=== PATIENT | male | born 1955 | race Caucasian/White ===

== ENCOUNTER → 2022-11-02 13:43 | Outpatient (CLI) | payer MEDICARE, SELFPAY ==
--- NOTE | ~2022-11-02 | XR_ITS ---
AP and lateral views of the left hip Clinical history: Pain Findings: No acute fracture or dislocation is seen. Osseous alignment is anatomic. The left hip joint is preserved. Soft tissues are unremarkable. Impression: No significant abnormality is seen. Reviewed, dictated and finalized at location . Impression: No significant abnormality is seen.
== END ==
PROVIDERS: PCP Family Medicine; Visit Provider Family Medicine
DX: M25.552 Pain in left hip (principal)
CPT/HCPCS: 73502

== ENCOUNTER 2023-02-08 00:34 | Day surgery (SDC) | payer MEDICARE, SELFPAY ==
[2023-01-27 13:17] VITALS: BMI 32.5
[2023-02-08 07:39] VITALS: BP 147/81; PULSE 65; RESP 20; TEMP 36.4; O2SAT 98
[2023-02-08] MEDS: LACTATED RINGERS 1,000 ML 150 ML IV CONT (07:42)
--- NOTE | 2023-02-08 08:16 | PM.HPGS ---
History of Present Illness History of Present Illness Consent: Risks, benefits, and alternatives have been discussed and questions answered. Patient agrees to proceed with procedure. Chief complaint: hx colon polyps Narrative: Richard Juan is a 67 year old male Presents for screening colonoscopy. Patient has current weight appetite and bowel movements are normal. Patient denies abdominal pain. He has had no bleeding. Patient has a history of adenomatous colon polyp in 2017. Patient presents today for surveillance colonoscopy. Patient has current weight appetite bowel movements are normal. He denies abdominal pain. He has had no bleeding. Family history noncontributory. Review of Systems Review of Systems: Review of systems noncontributory. [facility] Past Medical History Medical History (Updated 10/30/22 @ 10:58 by Víctor Philip MD) Essential (primary) hypertension Hyperlipidemia, unspecified Personal history of colonic polyps Prediabetes Social History Social History (Updated 10/30/22 @ 10:07 by Tequila Terrell MA) Smoking packs per day: 2 Smoking cigarettes per day: 40.0 Years smoked: 15 Smoking pack-years: 30.00 Smoking status: Former smoker Smokeless tobacco user: chewing tobacco Alcohol intake: never Substance use: never Substance use type: does not use Lack of Transportation: No Lack of Food: Never True Current Housing: I Have Housing Concerned About Future Housing: No Difficulty Paying Gas/Electric Bills: No Difficulty Paying for Meds: No Currently Unemployed: No Education: Associate Degree Difficulty w/ Childcare or Family Care: No Living arrangements: with family Occupation/Education: retired Gender identity (if verbalized by the patient): Male Sexual Orientation (if Verbalized by the Patient): Straight or Heterosexual Spiritual care concerns: No Meds Home Medications and Allergies Home Medications Medication Instructions Recorded Confirmed Type amlodipine 10 mg tablet 10 mg PO DAILY 10/30/22 02/08/23 History garlic 500 mg capsule 500 mg PO DAILY 10/30/22 02/08/23 History lisinopril 20 1 tablet PO DAILY 10/30/22 02/08/23 History mg-hydrochlorothiazide 25 mg tablet [id number] 300 mcg-K 60 1 tablet PO DAILY 10/30/22 02/08/23 History mcg-lycop 600 mcg-lutein 300 mcg tablet (Men 50 Plus Multivitamin) omega 6-ipo-raw-fish oil 100 3 cap PO DAILY 10/30/22 02/08/23 History mg-160 mg-1,000 mg capsule (Fish Oil) Allergies Allergy/AdvReac Type Severity Reaction Status Date / Time No Known Allergies Allergy Verified 02/08/23 07:38 Vital Signs Vital Signs - 24 hr 02/08/23 07:39 Temperature 97.5 F L Pulse Rate 65 Respiratory Rate 20 Blood Pressure 147/81 H Pulse Oximetry 98 Oxygen Delivery Room Air Exam Narrative: Physical exam reveals patient to be alert. Vital signs stable. HEENT exam is unremarkable. Patient is anicteric. Lungs are clear to auscultation and percussion. Heart is without murmur or extra sounds. Abdomen bowel sounds are present soft nontender with no organomegaly. Digital external rectal exam is normal. Assessment and Plan Assessment and plan (1) Personal history of colonic polyps: Code(s): Z86.010 - Personal history of colonic polyps Status: Acute Assessment and Plan: Patient has a history of colon polyps in the past. Plan for surveillance colonoscopy at this time. Consider follow-up at 5 year intervals if polyps are identified.
--- NOTE | 2023-02-08 08:42 | WPDANESEPPF ---
Anes - Initial Pre Proc Eval Procedure: Operation Date: 02/08/23 09:00 Proposed Procedures p Colonoscopy - Leonardo Manzano MD Date/Time: 02/08/23 08:42 Surgeon: Leonardo Manzano MD Pre Op Diagnosis: hx colon polyps Patient Data Age: 67 Gender: M Height: 1.91 m Weight: 126.4 kg Last Vital Signs Temp 97.5 F L 02/08/23 07:39 Pulse 65 02/08/23 07:39 Resp 20 02/08/23 07:39 BP 147/81 H 02/08/23 07:39 Pulse Ox 98 02/08/23 07:39 O2 Del Method Room Air 02/08/23 07:39 Allergies Allergy/AdvReac Type Severity Reaction Status Date / Time No Known Allergies Allergy Verified 02/08/23 07:38 Home Medications Medication Instructions Recorded Confirmed Type amlodipine 10 mg tablet 10 mg PO DAILY 10/30/22 02/08/23 History garlic 500 mg capsule 500 mg PO DAILY 10/30/22 02/08/23 History lisinopril 20 1 tablet PO DAILY 10/30/22 02/08/23 History mg-hydrochlorothiazide 25 mg tablet [id number]-to-plrfx 300 mcg-K 60 1 tablet PO DAILY 10/30/22 02/08/23 History mcg-lycop 600 mcg-lutein 300 mcg tablet (Men 50 Plus Multivitamin) omega 8-qrc-ght-fish oil 100 3 cap PO DAILY 10/30/22 02/08/23 History mg-160 mg-1,000 mg capsule (Fish Oil) Patient hx anesthesia problems: none Family hx anesthesia problems: none Results Review: All pre-operative results and documents have been reviewed as part of the pre-operative evaluation. [facility] Past Medical History Medical History (Updated 10/30/22 @ 10:58 by Víctor Philip MD) Essential (primary) hypertension Hyperlipidemia, unspecified Personal history of colonic polyps Prediabetes Social History Social History (Updated 10/30/22 @ 10:07 by Tequila Terrell MA) Smoking packs per day: 2 Smoking cigarettes per day: 40.0 Years smoked: 15 Smoking pack-years: 30.00 Smoking status: Former smoker Smokeless tobacco user: chewing tobacco Alcohol intake: never Substance use: never Substance use type: does not use Lack of Transportation: No Lack of Food: Never True Current Housing: I Have Housing Concerned About Future Housing: No Difficulty Paying Gas/Electric Bills: No Difficulty Paying for Meds: No Currently Unemployed: No Education: Associate Degree Difficulty w/ Childcare or Family Care: No Living arrangements: with family Occupation/Education: retired Gender identity (if verbalized by the patient): Male Sexual Orientation (if Verbalized by the Patient): Straight or Heterosexual Spiritual care concerns: No Anes - Eval Final PreProcedure Day of Procedure 02/08/23 08:42 Patient weight: obese Heart: regular rate and rhythm Lungs: clear to auscultation Airway: Mallampati scale class II Neurological: alert and oriented Last oral intake: >/= 8 hours ASA classification: III Emergent: no Anesthetic plan: proceed Anesthesia type and monitoring: general GIVS and standard monitoring Results Review: All pre-operative results and documents have been reviewed as part of the pre-operative evaluation. Informed Consent: The patient's anesthetic plan and its attendant risks and benefits were discussed with the patient/family/POA. Questions were solicited and answers provided to the satisfaction of the patient/family/POA.
[2023-02-08 09:19] VITALS: BP 122/76; PULSE 55; RESP 18; O2SAT 96
[2023-02-08 09:29] VITALS: BP 120/78; PULSE 56; RESP 19; O2SAT 96
[2023-02-08 09:39] VITALS: BP 134/81; PULSE 54; RESP 17; O2SAT 97
== END 2023-02-08 09:45 | disposition home or self-care (01) ==
PROVIDERS: PCP Family Medicine; Visit Provider Internal Medicine Gastroenterology
PROC: 0DJD8ZZ Inspection of Lower Intestinal Tract, Via Natural or Artificial Opening Endoscopic (ICD-10-PCS; CPT 45378; principal; 2023-02-08 09:00)
DX: Z12.11 Encounter for screening for malignant neoplasm of colon (principal); D12.3 Benign neoplasm of transverse colon; K63.5 Polyp of colon; K57.30 Diverticulosis of large intestine without perforation or abscess without bleeding; K64.8 Other hemorrhoids; I10 Essential (primary) hypertension; E78.5 Hyperlipidemia, unspecified; R73.03 Prediabetes; F17.220 Nicotine dependence, chewing tobacco, uncomplicated; E66.9 Obesity, unspecified; Z68.34 Body mass index [BMI] 34.0-34.9, adult
CPT/HCPCS: 45385; 88305; J2704; J7120